=== PATIENT | male | born 1970 | race African-American/Black ===

== ENCOUNTER 2019-06-19 18:09 | Emergency (ER) | payer BC ==
[2019-06-19] MEDS ORDERED: Ketorolac Tromethamine 60 MG/2 ML VIAL ONE (18:52)
--- NOTE | 2019-06-19 18:58 | RAD ---
EXAM: LEFT SHOULDER THREE VIEWS: 06/19/19 HISTORY: Pain in left shoulder. FINDINGS: No fracture, dislocation, or other significant acute osseous abnormality. IMPRESSION: Unremarkable left shoulder. POS: RRE
== END 2019-06-19 19:20 | disposition home or self-care (01) ==
LOC: ERS 18:09 → EDBD 18:09 → ERS 19:20
DX: M25.512 Pain in left shoulder (principal); F17.210 Nicotine dependence, cigarettes, uncomplicated
CPT/HCPCS: 96372; J1885